=== PATIENT | female | born 1945 | race Two or more races ===

== ENCOUNTER 2019-12-16 08:23 | Outpatient (CLI) | payer OTHER | END 2019-12-16 08:29 | disposition home or self-care (01) | LOC: LAB 08:23 | DX: E11.21 Type 2 diabetes mellitus with diabetic nephropathy (principal); E78.49 Other hyperlipidemia; E03.8 Other specified hypothyroidism ==

== ENCOUNTER 2020-05-02 07:05 | Outpatient (CLI) | payer OTHER | END 2020-05-02 07:13 | disposition home or self-care (01) | LOC: LAB 07:05 | DX: E11.65 Type 2 diabetes mellitus with hyperglycemia (principal); E78.2 Mixed hyperlipidemia; E03.8 Other specified hypothyroidism; E11.21 Type 2 diabetes mellitus with diabetic nephropathy; E55.9 Vitamin D deficiency, unspecified; E53.8 Deficiency of other specified B group vitamins ==

== ENCOUNTER 2020-05-12 20:05 | Inpatient (IN) | payer OTHER ==
[~2020-05-12] VITALS: Ht 160 cm; Wt 68.0 kg
[2020-05-12] MEDS ORDERED: BRILINTA90 MG (20:18)
[2020-05-12] MEDS ORDERED: ASPIR 8181 MG (20:18)
[2020-05-12] MEDS ORDERED: ISOSORBIDE MONO60 MG (20:19)
[2020-05-12] MEDS ORDERED: CARVEDILOL25 MG (20:19)
[2020-05-12] MEDS ORDERED: DILTIAZEM HCL120 MG (20:19)
[2020-05-12] MEDS ORDERED: LIVALO2 MG (20:20)
[2020-05-12] MEDS ORDERED: NEURONTIN600 M1 (20:20)
[2020-05-12] MEDS ORDERED: SYNTHROID75 MCG (20:21)
[2020-05-12] MEDS ORDERED: VASOTEC20 M1 (20:21)
[2020-05-12] MEDS ORDERED: SYNJARDY 5-1,01 EACH (20:21)
[2020-05-12] MEDS ORDERED: ZETIA10 MG (20:22)
--- NOTE | 2020-05-12 20:30 | NUR ---
PACIENTE ALERTA Y ORIENTADA X3. REFIERE VENIR POR UN ABSCESO EN EL GLUTEO DERECHO DESDE HACE 1 SEMANA. SE UBICA EN AREA DE OBSERVACION PARA EVALUACION MEDICA. PACIENTE NIEGA HEMORROIDES.
--- NOTE | 2020-05-12 21:13 | NUR ---
PTE ALERTA Y ORIENTADA X3, SE LE ROCÍO MUESTRAS DE LAB. RICARDO ORDEN MEDICA BAJO MEDIDAS ASEPTICAS E ESTERIL. SE CANALIZA AREA SALTY DE EDEMA Y DE ENROJECIMIENTO. SE LE ADMINISTRAN MEDICAMENTOS RICARDO ORDEN MEDICA Y SE EDUCA SOBRE TRATAMIENTO MEDICO. PTE MANEJADO POR. MIO.
--- NOTE | 2020-05-12 23:16 | NUR ---
SE RECIBE PTE DEL TURNO ANTERIOR, ALERTA Y ORIENTADA X 3 ESFERAS, EN CINDY NIVEL MAS BAJO, DELGADO DE IDENTIFICACION Y BARANDAS ELEVADAS POR PRECAUCION, EN COMPANIA DE FAMILIAR. SE OBSERVA CON BUEN PATRON RESPIRATORIO Y PIEL TIBIA AL TACTO. IV PATENTE Y SALTY DE EDEMA O ERITEMA CON 0.45% NACL @120 ML/HR. PTE YA EVALUADA POR EL DR RUSSELL, EN ESPERA DE EVALUACION DEL INTERNISTA DR Pako [place].
== END 2020-05-19 12:30 | disposition home or self-care (01) | DRG 331 ==
LOC: ER 20:05 → SURH 23:28
PROVIDERS: ADMIT Surgery; ATTEND Surgery
PROC: B24BZZZ Ultrasonography of Heart with Aorta (ICD-10-PCS; 2020-05-12)
PROC: BW21Y0Z Computerized Tomography (CT Scan) of Abdomen and Pelvis using Other Contrast, Unenhanced and Enhanced (ICD-10-PCS; 2020-05-12)
PROC: 4A12X4Z Monitoring of Cardiac Electrical Activity, External Approach (ICD-10-PCS; 2020-05-13)
PROC: 0D9P00Z Drainage of Rectum with Drainage Device, Open Approach (ICD-10-PCS; principal; 2020-05-13 12:30)
DX: K61.1 Rectal abscess (principal); I10 Essential (primary) hypertension; I25.10 Atherosclerotic heart disease of native coronary artery without angina pectoris; B96.6 Bacteroides fragilis [B. fragilis] as the cause of diseases classified elsewhere; E03.8 Other specified hypothyroidism; E11.65 Type 2 diabetes mellitus with hyperglycemia; Z20.828 Contact with and (suspected) exposure to other viral communicable diseases; Z79.4 Long term (current) use of insulin

== ENCOUNTER → 2020-08-08 08:05 | Outpatient (CLI) | payer OTHER ==
[~2020-08-08 08:05] MED LIST: ASPIR 8181 MG; BRILINTA90 MG; CARVEDILOL25 MG; DILTIAZEM HCL120 MG; ISOSORBIDE MONO60 MG; LIVALO2 MG; NEURONTIN600 M1; SYNJARDY 5-1,01 EACH; SYNTHROID75 MCG; VASOTEC20 M1; ZETIA10 MG
== END | disposition home or self-care (01) ==
LOC: LAB 08:05
DX: E11.65 Type 2 diabetes mellitus with hyperglycemia (principal); E11.21 Type 2 diabetes mellitus with diabetic nephropathy; E78.49 Other hyperlipidemia; E55.9 Vitamin D deficiency, unspecified; E53.8 Deficiency of other specified B group vitamins; E03.2 Hypothyroidism due to medicaments and other exogenous substances

== ENCOUNTER 2020-08-19 12:23 | Outpatient (CLI) | payer OTHER | END 2020-08-19 12:26 | disposition home or self-care (01) | LOC: MAMO-SONO 12:23 | PROVIDERS: ATTEND Obstetrics & Gynecology | DX: Z12.31 Encounter for screening mammogram for malignant neoplasm of breast (principal); N64.4 Mastodynia ==

== ENCOUNTER → 2020-08-19 | Outpatient (CLI) | payer OTHER | END | disposition home or self-care (01) | LOC: NUCLEAR 11:04 | DX: M85.89 Other specified disorders of bone density and structure, multiple sites (principal) ==

== ENCOUNTER → 2020-08-24 | Outpatient (CLI) | payer OTHER | END | disposition home or self-care (01) | LOC: RAD 09:03 → MAMO-SONO 09:15 | DX: M65.4 Radial styloid tenosynovitis [de Quervain] (principal); M25.531 Pain in right wrist ==

== ENCOUNTER 2020-11-16 08:25 | Outpatient (CLI) | payer OTHER | END 2020-11-16 08:30 | disposition home or self-care (01) | LOC: LAB 08:25 | DX: E11.40 Type 2 diabetes mellitus with diabetic neuropathy, unspecified (principal); I11.9 Hypertensive heart disease without heart failure; E89.0 Postprocedural hypothyroidism; E55.9 Vitamin D deficiency, unspecified; M81.0 Age-related osteoporosis without current pathological fracture; E78.2 Mixed hyperlipidemia ==

== ENCOUNTER → 2021-01-23 08:33 | Outpatient (CLI) | payer OTHER | END | disposition home or self-care (01) | LOC: LAB 08:33 | DX: E11.40 Type 2 diabetes mellitus with diabetic neuropathy, unspecified (principal); E66.09 Other obesity due to excess calories; E89.0 Postprocedural hypothyroidism; E78.2 Mixed hyperlipidemia ==

== ENCOUNTER 2021-03-08 11:11 | Outpatient (CLI) | payer OTHER | END 2021-03-08 11:15 | disposition home or self-care (01) | LOC: LAB 11:11 | DX: Z03.818 Encounter for observation for suspected exposure to other biological agents ruled out (principal) ==

== ENCOUNTER → 2021-03-16 10:05 | Outpatient (CLI) | payer OTHER | END | disposition home or self-care (01) | LOC: LAB 10:05 | DX: Z03.818 Encounter for observation for suspected exposure to other biological agents ruled out (principal); Z20.89 Contact with and (suspected) exposure to other communicable diseases; Z20.828 Contact with and (suspected) exposure to other viral communicable diseases ==

== ENCOUNTER 2021-04-20 07:46 | Outpatient (CLI) | payer OTHER | END 2021-04-20 18:50 | disposition home or self-care (01) | LOC: LAB 07:46 | DX: E11.40 Type 2 diabetes mellitus with diabetic neuropathy, unspecified (principal); E06.3 Autoimmune thyroiditis ==

== ENCOUNTER → 2021-05-22 10:51 | Outpatient (CLI) | payer OTHER | END | disposition home or self-care (01) | LOC: LAB 10:51 | DX: Z03.818 Encounter for observation for suspected exposure to other biological agents ruled out (principal); Z20.89 Contact with and (suspected) exposure to other communicable diseases; Z20.828 Contact with and (suspected) exposure to other viral communicable diseases ==

== ENCOUNTER → 2021-07-12 08:19 | Outpatient (CLI) | payer OTHER | END | disposition home or self-care (01) | LOC: LAB 08:19 | DX: E53.8 Deficiency of other specified B group vitamins (principal); E11.42 Type 2 diabetes mellitus with diabetic polyneuropathy; E11.21 Type 2 diabetes mellitus with diabetic nephropathy; E06.4 Drug-induced thyroiditis; E89.0 Postprocedural hypothyroidism; E78.2 Mixed hyperlipidemia; E55.9 Vitamin D deficiency, unspecified ==

== ENCOUNTER 2021-08-29 09:20 | Outpatient (CLI) | payer OTHER | END 2021-08-29 09:21 | disposition home or self-care (01) | LOC: LAB 09:20 | PROVIDERS: ATTEND Specialist | DX: E78.2 Mixed hyperlipidemia (principal); E11.65 Type 2 diabetes mellitus with hyperglycemia; I10 Essential (primary) hypertension; Z12.11 Encounter for screening for malignant neoplasm of colon; E55.9 Vitamin D deficiency, unspecified ==

== ENCOUNTER 2021-12-13 09:04 | Outpatient (CLI) | payer OTHER | END 2021-12-13 09:12 | disposition home or self-care (01) | LOC: LAB 09:04 | DX: E11.42 Type 2 diabetes mellitus with diabetic polyneuropathy (principal); E89.0 Postprocedural hypothyroidism; E53.8 Deficiency of other specified B group vitamins; E55.9 Vitamin D deficiency, unspecified; M81.0 Age-related osteoporosis without current pathological fracture; E78.2 Mixed hyperlipidemia; I25.10 Atherosclerotic heart disease of native coronary artery without angina pectoris; I11.9 Hypertensive heart disease without heart failure ==

== ENCOUNTER → 2022-02-17 08:00 | Outpatient (CLI) | payer OTHER | END | disposition home or self-care (01) | LOC: LAB 08:00 | PROVIDERS: ATTEND Internal Medicine | DX: E03.8 Other specified hypothyroidism (principal); E11.9 Type 2 diabetes mellitus without complications ==

== ENCOUNTER 2022-03-19 08:28 | Outpatient (CLI) | payer OTHER | END 2022-03-19 13:42 | disposition home or self-care (01) | LOC: LAB 08:28 | DX: E11.42 Type 2 diabetes mellitus with diabetic polyneuropathy (principal); E89.0 Postprocedural hypothyroidism ==

== ENCOUNTER 2022-07-21 08:19 | Outpatient (CLI) | payer OTHER | END 2022-07-21 08:20 | disposition home or self-care (01) | LOC: LAB 08:19 | DX: E11.42 Type 2 diabetes mellitus with diabetic polyneuropathy (principal); E89.0 Postprocedural hypothyroidism; E55.9 Vitamin D deficiency, unspecified; E78.2 Mixed hyperlipidemia ==

== ENCOUNTER → 2022-11-03 08:00 | Outpatient (CLI) | payer OTHER | END | disposition home or self-care (01) | LOC: LAB 08:00 | DX: E11.65 Type 2 diabetes mellitus with hyperglycemia (principal); I25.10 Atherosclerotic heart disease of native coronary artery without angina pectoris; E06.9 Thyroiditis, unspecified ==